=== PATIENT | male | born 1990 | race Caucasian/White ===

== ENCOUNTER 2024-03-03 06:59 | Outpatient (CLI) | payer OTHER, SELFPAY ==
--- NOTE | ~2024-03-03 | MR_ITS ---
MRI of the left knee Clinical history: Pain Technique: Coronal proton density and proton density-weighted images, sagittal proton-density and T2 fat-sat images, and axial proton-density fat-saturated images were acquired. Findings: There is probable complete tear at the proximal ACL, possibly chronic in nature. Posterior cruciate ligament is intact. Medial collateral ligament and the lateral collateral ligament, posterio r intact. Popliteus tendon is intact. There is a peripheral vertical tear of the posterior horn of the lateral meniscus. Posterior horn of the medial meniscus and body segment are markedly diminutive, compatible complex tearing, versus poss ibly sequela of prior partial meniscectomy. There is probable horizontal tear involving the anterior horn of the medial meniscus. Patellar articular cartilage is well preserved. Femoral trochlear cartilage is well preserved. Articu lar cartilage in the medial lateral margins also well-preserved. Bone marrow signals are unremarkable . Extensor mechanism is intact. Small to small moderate joint effusion present. Minimal Maxwell's cyst. Impression: Complete proximal ACL tear, possibly chronic in nature given lack of acute soft tissue edematous find ings. Correlate for ACL laxity. Peripheral vertical tear of the posterior horn of the lateral meniscus. Probable complex tearing involving essentially the entire medial meniscus, especially posterior horn and body segment, as detailed above. Correlate for any possibility of prior partial medial meniscecto my. Small to small moderate joint effusion. Reviewed, dictated and finalized at [facility]. Impression: Complete proximal ACL tear, possibly chronic in nature given lack of acute soft tissue edematous findings. Correlate for ACL laxity. Peripheral vertical tear of the posterior horn of the lateral meniscus. Probable complex tearing involving essentially the entire medial meniscus, keith cially posterior horn and body segment, as detailed above. Correlate for any po ssibility of prior partial medial meniscectomy. Small to small moderate joint effusion.
== END 2024-03-03 07:00 ==
PROVIDERS: PCP Physician Assistant; Visit Provider Physician Assistant
DX: S83.512A Sprain of anterior cruciate ligament of left knee, initial encounter (principal); S83.282A Other tear of lateral meniscus, current injury, left knee, initial encounter; M25.462 Effusion, left knee; X58.XXXA Exposure to other specified factors, initial encounter
CPT/HCPCS: 73721